=== PATIENT | male | born 1970 | race Two or more races ===

== ENCOUNTER 2023-01-13 02:13 | Emergency (ER) | payer OTHER ==
[~2023-01-13] VITALS: Ht 180.3 cm; Wt 106.8 kg
[2023-01-13 02:28] VITALS: TEMP 98.3
[2023-01-13] MEDS ORDERED: LOSA-382 PO (02:28)
[2023-01-13] MEDS ORDERED: PB/HYOSCY/ATR/SCOP/LIDO/MAALOX 55 ML BOTTLE PO ONE (02:30)
[2023-01-13] MEDS ORDERED: KETOROLAC TROMETHAMINE 30 MG/ML VIAL IVP ONE (02:30)
[2023-01-13 02:34] LABS: BASOPHILS % (AUTO) 0.5 % (0.0-2.0); EOSINOPHILS % (AUTO) 0.7 % (1.0-6.0); HEMATOCRIT 42.1 % (41-53); HEMOGLOBIN 14.8 g/dL (13.5-17.5); LYMPHOCYTES # (AUTO) 1.5 K/uL (1.0-4.8); LYMPHOCYTES % (AUTO) 17.9 % (22.0-44.0); MEAN CORPUSCULAR HGB CONC 35.3 G/dL (31.0-37.0); MEAN CORPUSCULAR VOLUME 91 fL (80-100); MONOCYTES # (AUTO) 0.5 K/uL (0.1-1.0); MONOCYTES % (AUTO) 6.2 % (2.0-9.0); NEUTROPHILS # (AUTO) 6.2 K/uL (1.8-7.7); NEUTROPHILS % (AUTO) 74.7 % (40.0-70.0); PLATELET COUNT (AUTO) 176 K/uL (150-450); RED BLOOD CELL COUNT(AUTO) 4.64 MIL/uL (4.50-5.90); WHITE BLOOD COUNT (AUTO) 8.2 K/uL (4.5-11.0)
[2023-01-13 02:50] LABS: ANION GAP 7 mmol/L (8-16); CALCIUM, TOTAL 8.7 mg/dL (8.8-10.5); CARBON DIOXIDE 27 mmol/L (22-29); CHLORIDE 104 mmol/L (98-107); CREATININE 0.92 mg/dL (0.60-1.30); GLOMERULAR FILTR. RATE CALC > 60 mL/min (>60); GLUCOSE,RANDOM 173 mg/dL (70-110); POTASSIUM 3.6 mmol/L (3.5-5.1); SODIUM SERUM 138 mmol/L (136-145); UREA NITROGEN, BLOOD 15 mg/dL (7-18)
[2023-01-13 02:52] LABS: TROPONIN I-HIGH SENSITIVITY 5 ng/L (<76)
[2023-01-13 02:57] LABS: ALANINE AMINOTRANSFERASE 113 U/L (12-78); ALBUMIN 3.7 g/dL (3.4-5.0); ALKALINE PHOSPHATASE 89 U/L (46-116); ASPARTATE AMINOTRANSFERASE 48 U/L (15-37); B-TYPE NATRIURETIC PEPTIDE 10 pg/mL (0-100); BILIRUBIN,TOTAL 0.8 mg/dL (0.1-1.0); CREATINE KINASE, TOTAL ONLY 215 U/L (39-308); LIPASE 46 U/L (16-77); TOTAL PROTEIN, SERUM 7.6 g/dL (6.4-8.2)
[2023-01-13 04:47] VITALS: BP 144/89; PULSE 83; RESP 15
== END 2023-01-13 04:59 | disposition home or self-care (01) ==
LOC: EMS 02:21
DX: K80.20 Calculus of gallbladder without cholecystitis without obstruction (principal)
CPT/HCPCS: 99285; 96374; 76705; 71045; 80053; 82550; 83690; 83880; 84484; 85025; 36415; 93005; J1885